=== PATIENT | male | born 2000 | race Caucasian/White ===

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

== ENCOUNTER 2021-08-06 16:44 | Emergency (ER) | payer MEDICAID ==
[~2021-08-06] VITALS: Ht 172.7 cm; Wt 104.3 kg
[~2021-08-06 16:44] MED LIST changes: +CEPH-548 PO
[2021-08-06 17:08] VITALS: BP_SYST 136
[2021-08-06] MEDS ORDERED: DIPH-TET-PERTUS Vaccine 0.5 ML VIAL (ADACEL) I.M. ONE (18:15)
[2021-08-06] MEDS ORDERED: CIPROFLOXACIN HCL 500 MG TABLET PO ONE (18:15)
[2021-08-06] MEDS ORDERED: CIPR500T5 PO (18:18)
[2021-08-06] MEDS ORDERED: IBUPROFEN 800 MG TABLET PO ONE (18:30)
[2021-08-06 18:35] VITALS: BP_SYST 136
== END 2021-08-06 18:35 | disposition home or self-care (01) ==
LOC: SED 16:44
DX: S91.331A Puncture wound without foreign body, right foot, initial encounter (principal); Z88.1 Allergy status to other antibiotic agents; Z79.899 Other long term (current) drug therapy; W45.0XXA Nail entering through skin, initial encounter; Y93.89 Activity, other specified; Y92.89 Other specified places as the place of occurrence of the external cause; Y99.8 Other external cause status
CPT/HCPCS: 90715; 99283

== ENCOUNTER 2023-10-16 22:46 | Emergency (ER) | payer MEDICAID ==
[~2023-10-16] VITALS: Ht 172.7 cm; Wt 108.9 kg
[~2023-10-16 22:46] MED LIST changes: +CIPR500T5 PO
[2023-10-16 23:21] VITALS: BP_SYST 133; PULSE 105; RESP 18; TEMP 96.4; O2SAT 95
[2023-10-17] MEDS ORDERED: PRED50TA PO (00:59)
[2023-10-17] MEDS ORDERED: IBUP-1969 PO (00:59)
[2023-10-17] MEDS ORDERED: ZIT250 PO (00:59)
== END 2023-10-17 01:29 | disposition home or self-care (01) ==
LOC: SED 22:46
DX: H66.93 Otitis media, unspecified, bilateral (principal); R05.9 Cough, unspecified; R06.02 Shortness of breath; Z88.1 Allergy status to other antibiotic agents; Z79.899 Other long term (current) drug therapy
CPT/HCPCS: 71045; 99283